=== PATIENT | male | born 1940 | race Caucasian/White ===

== ENCOUNTER 2016-11-24 20:07 | Observation (INO) | payer MEDICARE, MEDICAID ==
[2016-11-24] MEDS ORDERED: DIAZEPAM 10 MG/2 ML SYR ONE (20:30)
[2016-11-24] MEDS ORDERED: HYDROmorphone HCL 1 MG/ML SYR ONE (20:31)
[2016-11-24 21:29] LABS: BASOPHILS 0.6 % (0.0-2.0); EOSINOPHILS 3.4 % (0.0-6.0); EOSINOPHILS# 0.3 X 10^3uL (0.0-0.4); HEMATOCRIT 45.7 % (42.0-54.0); HEMOGLOBIN 15.6 g/dL (14.0-18.0); LYMPHOCYTES 29.5 % (20.0-40.0); LYMPHOCYTES# 2.3 X 10^3uL (0.8-3.8); MEAN CELL VOLUME 88.9 fL (80.0-100.0); MEAN CORPUS. HGB CONCENTRATION 34.2 g/dL (32.0-36.0); MEAN CORPUSCULAR HEMOGLOBIN 30.4 pg (29.0-35.0); MEAN PLATELET VOLUME 8.5 fL (7.4-10.4); MONOCYTES 10.7 % (2.0-10.0); MONOCYTES# 0.8 X 10^3uL (0.2-1.0); NEUTROPHILS 55.8 % (54.0-75.0); NEUTROPHILS# 4.5 X 10^3uL (2.6-6.7); PLATELET COUNT 318 X 10^3uL (130-440); RED BLOOD COUNT 5.15 X 10^6uL (4.20-6.10); RED CELL DISTRIBUTION WIDTH 13.3 % (11.5-14.5); WHITE BLOOD COUNT 7.9 X 10^3uL (3.9-10.7)
[2016-11-24 21:32] LABS: BLOOD UREA NITROGEN 14 mg/dL (9-20); CALCIUM 9.4 mg/dL (8.4-10.2); CHLORIDE 105 mmol/L (98-107); EST GLOMERULAR FILTRATION RATE > 60 mL/min; GLUCOSE 89 mg/dL (70-100); POTASSIUM 3.7 mmol/L (3.5-5.1); SODIUM 144 mmol/L (137-145)
[2016-11-24] MEDS ORDERED: HOME MEDICATION LIST NEEDED 1 EA EACH MISC ONE (21:39)
[2016-11-24] MEDS ORDERED: MORPHINE SULFATE 4 MG/ML SYR ONE (22:28)
--- NOTE | 2016-11-24 22:40 | ER NURSING DOCUMENTATION ---
Nurse's Notes [facility] Name:Shola Willingham Age:76 yrs Sex:Male :1940 Arrival Date:11/24/2016 Time:20:07 Bed4 Private MD:Physician, No Diagnosis:Acute Back Pain;Difficulty Walking Presentation: 11/24 20:12 Presenting complaint: Patient states: Pt had surgery on his back to decompress l4-5. PT rh c/o severe back pain along with spasms. Transition of care: Home. 20:12 Acuity: JOSÉ MIGUEL 3 20:12 Method Of Arrival: EMS: 410 Triage Assessment: 20:14 General: Appears uncomfortable, Behavior is cooperative. Pain: Complains of pain in rh back. EENT: Oral mucosa is dry. Neuro: Level of Consciousness is awake, alert, obeys commands, Oriented to person, place, time, event. Respiratory: Airway is patent Respiratory effort is even, unlabored, Respiratory pattern is regular, symmetrical. GI: Denies nausea. Musculoskeletal: Circulation, motion, and sensation intact Range of motion intact in all extremities. Reports pain in back. Historical: - Allergies: PENICILLINS; - Home Meds: 1. Lisinopril Oral 2. Plavix Oral 3. Tramadol Oral 4. Colace oral - PMHx: TIA; CHRONIC BACK PAIN; - PSHx: L4-5 Decompression, laminotomy and foramenotomy; - Tetanus: < 10 years. - Ebola Screening: : Patient negative for fever greater than or equal to 101.5 degrees Fahrenheit, and additional compatible Ebola Virus Disease symptoms. - Immunization history: Pneumococcal vaccine is up to date, Flu Vaccine < 1 year. - Social history: Smoking status: Patient states former smoker of tobacco. Screenin:15 Infectious Disease Risk None. Abuse screen: Denies threats or abuse. Denies injuries rh from another. Nutritional screening: No deficits noted. Assessment: 20:15 See Triage Assessment done by same RN. 21:00 Reassessment: pt still having back spasms and pain, doctor jennifer notified. . rh Vital Signs: 20:14 BP 187 / 79; Pulse 73; Resp 19; Temp 98.2(O); Pulse Ox 92% on R/A; Weight 67.13 kg; rh Height 5 ft. 7 in. (170.18 cm); Pain 10/10; 22:38 BP 125 / 77; Pulse 68; Resp 17; Pulse Ox 96% on 2 lpm NC; Pain 7/10; rh 20:14 Body Mass Index 23.18 (67.13 kg, 170.18 cm) rh ED Course: 20:08 Patient arrived in ED. em2 20:09 Physician, No is Private Physician. em2 20:10 Notified ED Physician of patient's arrival and chief complaint. Dr. Wallis notified. rh 20:11 Barry Wallis MD is Attending Physician. 20:12 Marisel Kendall is Primary Nurse. rh 20:12 Triage completed. rh 20:15 Valuables Remains with patient Patient has correct armband on for positive rh identification. Bed in low position. Call light in reach. Side rails up X 1. 20:20 Oxygen Oxygen administration via nasal cannula @ 2L/min. rh 20:22 Inserted peripheral IV: 20 gauge in left forearm. 22:18 Sean Huitron MD is Admitting Physician. Administered Medications: 20:16 Drug: NS 0.9% 1000 ml; Route: IV; Rate: bolus; Site: left antecubital; rh 21:10 Follow up: IV Status: Completed infusion; IV Intake: 1000ml rh 20:23 Drug: Dilaudid 1 mg; Route: IVP; Site: left antecubital; rh 20:26 Follow up: Response: No adverse reaction rh 20:23 Drug: Valium 5 mg; Route: IVP; Site: left antecubital; rh 20:26 Follow up: Response: No adverse reaction rh 22:19 Drug: morphine 4 mg; Route: IVP; Site: left hand; rh 22:39 Follow up: Response: No adverse reaction; Pain is decreased rh Intake: 21:10 IV: 1000ml; Total: 1000ml. rh Outcome: 22:18 Decision to Admit by Provider. 22:38 Admitted to Med/surg accompanied by nurse, via stretcher, with oxygen, with chart. rh 22:38 Condition: improved 22:38 Discharge Assessment: Patient awake, alert and oriented x 3. No cognitive and/or functional deficits noted. Patient verbalized understanding of disposition instructions. 22:38 Discharge instructions given to patient, Instructed on discharge instructions, follow up and referral plans. Demonstrated understanding of instructions. 22:39 Patient left the ED. rh Signatures: Barry Wallis MD MD jm Meinking-reg, Katalina em2 Marisel Kendall floyd fc
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
[2016-11-24] MEDS: ACETAMINOPHEN ER 650 MG TAB.SR.8HR PO SCH (23:14)
[2016-11-24] MEDS: CYCLOBENZAPRINE HCL 10 MG TABLET PO SCH (23:14)
[2016-11-25] MEDS: MORPHINE SULFATE 2 MG/ML SYR IV PRN ×2 (01:34→07:52)
[2016-11-25] MEDS ORDERED: HYDROcodone/APAP 5/325 MG 1 TAB TABLET PO PRN (07:38)
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
[2016-11-25] MEDS: CYCLOBENZAPRINE HCL 10 MG TABLET PO SCH ×3 (08:15→21:09)
[2016-11-25] MEDS ORDERED: LISINOPRIL 10 MG TABLET PO SCH (09:00)
[2016-11-25] MEDS: ACETAMINOPHEN ER 650 MG TAB.SR.8HR PO SCH ×3 (09:16→21:09)
[2016-11-25] MEDS: CLOPIDOGREL BISULFATE 75 MG TABLET PO SCH (09:17)
[2016-11-25] MEDS: LISINOPRIL 10 MG TABLET PO SCH (09:17)
[2016-11-25] MEDS: SENNOSIDES/DOCUSATE SODIUM 1 TAB TABLET PO SCH ×2 (09:17→21:09)
[2016-11-25] MEDS: POLYETHYLENE GLYCOL 3350 17 GM POWD.PACK PO SCH (09:20)
[2016-11-25 21:37] VITALS: O2SAT 95
--- NOTE | 2016-11-25 21:39 | PROGRESS NOTE: IM APSO ---
Assessment and Plan - Date of Encounter Date of Encounter: 11/25/16 (1) S/P lumbar laminectomy Status: Acute Assessment and plan: 10/04/16. Pain flared for the past week since starting P.T. Doubt infection. Current Visit: Yes (2) Intractable low back pain Status: Acute Assessment and plan: Still requiring 1 person assist + walker to ambulate. Not safe to go home. Current Visit: Yes (3) Right lumbar radiculopathy Status: Acute Assessment and plan: Ant. thigh on R. Likely above his recent surgery on L4-5. If not better soon, will do MRI. Current Visit: Yes (4) Emphysema of lung Status: Acute Assessment and plan: Chronic. Stable, but hypoxic when on opioids. Current Visit: Yes (5) History of ischemic cerebrovascular accident (CVA) with residual deficit Status: Acute Assessment and plan: Stable on Plavix. Slurring of speech - chronic. Current Visit: Yes - Time Spent With Patient Total time spent with greater than 50% in coordination of care (as documented) at patient's floor/unit and/or counseling patient: Estimated anticipated discharge: 11/26/16 IM: PN Subjective General: fatigue, no diaphoresis, no fever, no chills HEENT: no headache Cardiovascular: no chest pain, no palpitations Respiratory: no cough, no SOB Gastrointestinal: no abdominal pain, no nausea Musculoskeletal: pain (severe LBP radiating into R thigh anteriorly) Integumentary: wound (lumbar ) Neurological: no numbness, no limb weakness IM: PN Objective Exam - I&O/Vital Signs I&O: Intake & Output 11/25/16 11/25/16 11/25/16 05:59 13:59 21:59 Intake Total 150 540 Output Total 350 Balance 150 190 Weight 70.5 kg Intake: Oral 150 540 Output: Urine 350 Other: Urine Appearance Clear Urine Color Yellow Voiding Method Toilet Vital Signs: Last Vital Signs Temp 36.7 C 11/25/16 19:00 Pulse 54 L 11/25/16 19:00 Resp 10 L 11/25/16 19:00 BP 92/38 11/25/16 19:00 Pulse Ox 93 11/25/16 19:00 Oxygen Flow Rate 0.5 Oxygen Delivery Method Room Air - Constitutional General appearance: Present: average body habitus, acute distress (with movement. Fine at rest.) - ENT ENT exam: Present: mucous membranes dry, other (speech slightly slurred (chronic )) - Respiratory Respiratory exam: Present: clear - Cardiovascular Cardiovascular exam: Present: RRR. Absent: systolic murmur - GI/Abdominal GI/Abdominal exam: Present: soft. Absent: tenderness - Extremities Exam Extremities exam: Absent: calf tenderness, Lenora's Sign, edema - Back Exam Back exam: Present: paraspinal tenderness (R>L). Absent: vertebral tenderness - Neurological Exam Neurological exam: Present: oriented X3 - Psychiatric Psychiatric exam: Present: normal mood - Skin Skin exam: Present: other (lumbar wound well healed). Absent: rash - Allied Health Notes Allied health notes reviewed: nursing - Lab Labs: Laboratory Last Values WBC 7.9 X 10^3uL (3.9-10.7) 11/24/16 20:15 RBC 5.15 X 10^6uL (4.20-6.10) 11/24/16 20:15 Hgb 15.6 g/dL (14.0-18.0) 11/24/16 20:15 Hct 45.7 % (42.0-54.0) 11/24/16 20:15 MCV 88.9 fL (80.0-100.0) 11/24/16 20:15 MCH 30.4 pg (29.0-35.0) 11/24/16 20:15 MCHC 34.2 g/dL (32.0-36.0) 11/24/16 20:15 RDW 13.3 % (11.5-14.5) 11/24/16 20:15 Plt Count 318 X 10^3uL (130-440) 11/24/16 20:15 MPV 8.5 fL (7.4-10.4) 11/24/16 20:15 Neutrophils % 55.8 % (54.0-75.0) 11/24/16 20:15 Lymphocytes % 29.5 % (20.0-40.0) 11/24/16 20:15 Eosinophils % 3.4 % (0.0-6.0) 11/24/16 20:15 Basophils % 0.6 % (0.0-2.0) 11/24/16 20:15 Neutrophils # 4.5 X 10^3uL (2.6-6.7) 11/24/16 20:15 Lymphocytes # 2.3 X 10^3uL (0.8-3.8) 11/24/16 20:15 Monocytes 10.7 % (2.0-10.0) H 11/24/16 20:15 Monocytes # 0.8 X 10^3uL (0.2-1.0) 11/24/16 20:15 Eosinophils # 0.3 X 10^3uL (0.0-0.4) 11/24/16 20:15 Basophils # 0.0 X 10^3uL (0.0-0.1) 11/24/16 20:15 Sodium 144 mmol/L (137-145) 11/24/16 20:15 Potassium 3.7 mmol/L (3.5-5.1) 11/24/16 20:15 Chloride 105 mmol/L (98-107) 11/24/16 20:15 Carbon Dioxide 24 mmol/L (22-30) 11/24/16 20:15 BUN 14 mg/dL (9-20) 11/24/16 20:15 Creatinine 1.0 mg/dL (0.7-1.3) 11/24/16 20:15 GFR Calculation > 60 mL/min 11/24/16 20:15 Glucose 89 mg/dL (70-100) 11/24/16 20:15 Calcium 9.4 mg/dL (8.4-10.2) 11/24/16 20:15 Quality Questions - VTE Prophylaxis Assessment VTE Present on Admission?: No Patient at risk for venous thromboembolism?: Yes VTE Risk Level: High Risk Pharmaceutical VTE prophylaxis contraindication reason: N/A- VTE prophylaxsis ordered Mechanical VTE prophylaxis contraindication reason: N/A- VTE prophylaxsis ordered
[2016-11-26] MEDS ORDERED: MAGNESIUM HYDROXIDE 30 ML UDC PO PRN (05:34)
[2016-11-26] MEDS ORDERED: MAGNESIUM HYDROXIDE 30 ML UDC ONE (05:52)
[2016-11-26 06:25] VITALS: BP 140/77; PULSE 74; RESP 20; TEMP 97.7
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
[2016-11-26] MEDS: SENNOSIDES/DOCUSATE SODIUM 1 TAB TABLET PO SCH (08:45)
[2016-11-26] MEDS: LISINOPRIL 10 MG TABLET PO SCH (08:45)
[2016-11-26] MEDS: CLOPIDOGREL BISULFATE 75 MG TABLET PO SCH (08:46)
[2016-11-26] MEDS: ACETAMINOPHEN ER 650 MG TAB.SR.8HR PO SCH (08:47)
[2016-11-26] MEDS: CYCLOBENZAPRINE HCL 10 MG TABLET PO SCH (08:47)
[2016-11-26] MEDS: POLYETHYLENE GLYCOL 3350 17 GM POWD.PACK PO SCH (08:48)
== END 2016-11-26 10:17 | disposition home or self-care (01) ==
LOC: ER 20:07 → IN 22:41
PROVIDERS: ADMIT Family Medicine; ATTEND Family Medicine
DX: M54.5 Low back pain (principal); M51.16 Intervertebral disc disorders with radiculopathy, lumbar region; J43.9 Emphysema, unspecified; I69.328 Other speech and language deficits following cerebral infarction; J44.9 Chronic obstructive pulmonary disease, unspecified
CPT/HCPCS: 80048; 85025; 93005; 96361; 96374; 96375; 96376; 99285; A0425; A0429; G0283-GP; G0378; G8978; G8979; J1170; J2270; J3360